=== PATIENT | female | born 1940 | race Caucasian/White ===

== ENCOUNTER 2017-09-24 04:18 | Emergency (ER) | payer MEDICARE, OTHER ==
[2017-09-24] MEDS ORDERED: Zofran 4 MG/2 ML VIAL IV ONE (04:35)
[2017-09-24] MEDS ORDERED: Sodium Chloride 0.9% 1000 ML 1,000 ML IV STA (04:35)
--- NOTE | 2017-09-24 04:35 | ERPHSYRPT ---
- History of Present Illness Time Seen by Provider: 09/24/17 04:30 Source: patient, family Exam Limitations: no limitations Patient Subjective Stated Complaint: Nausea, diarrhea every hour since 2100. Has attempted to vomit but not getting anything up. Triage Nursing Assessment: Pt alert, oriented, answers all questions appropriately. Skin pink, warm, dry. Resps non-labored. Pt ambulatory from wheelchair to bed, steady gait noted. Physician History: The patient is a 77-year-old female with her daughter complaining of diarrhea for the last 7 hours. She will also feel nauseated but has not vomited. She will have a "twinge" of abdominal pain just before an episode of loose stool hits her. She is not lightheaded. She denies fever or chills. Her past medical history is significant for hypertension, parathyroid condition, high cholesterol, A. fib. Timing/Duration: yesterday, hour(s) (7) Severity: moderate Modifying Factors: Improves With: nothing Associated Symptoms: nausea, other (diarrhea), No vomiting Allergies/Adverse Reactions: No Known Drug Allergies Allergy (Unverified 09/24/17 04:22) Home Medications: Allopurinol 100 mg [Zyloprim 100 mg] 100 mg PO DAILY 09/24/17 [History] Apixaban [Eliquis] 5 mg PO DAILY 09/24/17 [History] Bimatoprost [Lumigan] drops HS 09/24/17 [History] Brimonidine Tartrate/Timolol [Combigan 0.2%-0.5% Eye Drops] 5 ml OP DAILY [History] Cholecalciferol (Vitamin D3) [Vitamin D3] 5,000 unit PO DAILY 09/24/17 [History] Ferrous Sulfate 325 mg [Feosol 325 mg] 325 mg PO DAILY 09/24/17 [History] Hydralazine HCl 50 mg PO DAILY 09/24/17 [History] Metoprolol Succinate [Toprol Xl] 100 mg PO DAILY 09/24/17 [History] Potassium Chloride [Klor-Con 10] 10 meq PO DAILY 09/24/17 [History] Ramipril [Altace] 10 mg PO DAILY 09/24/17 [History] Simvastatin [Zocor] 0 mg PO DAILY 09/24/17 [History] Triamterene/Hydrochlorothiazid [Triamterene-Hctz 75-50 mg Tab] 1 each PO DAILY 09/24/17 [History] Immunizations Up to Date: Yes - Review of Systems Constitutional: No Fever, No Chills Eyes: No Symptoms Ears, Nose, & Throat: No Symptoms Respiratory: No Cough, No Dyspnea Cardiac: No Chest Pain, No Edema, No Syncope Abdominal/Gastrointestinal: Nausea, Diarrhea Genitourinary Symptoms: No Dysuria Musculoskeletal: No Back Pain, No Neck Pain Skin: No Rash Neurological: No Dizziness, No Focal Weakness, No Sensory Changes Psychological: No Symptoms Endocrine: No Symptoms Hematologic/Lymphatic: No Symptoms Immunological/Allergic: No Symptoms All Other Systems: Reviewed and Negative - Social History Smoking Status: Never smoker Exposure to second hand smoke: No Patient Lives Alone: No - Female History Hx Now: No - Nursing Vital Signs Nursing Vital Signs: Initial Vital Signs Temperature 97.8 F 09/24/17 04:29 Pulse Rate 119 H 09/24/17 04:29 Respiratory Rate 20 09/24/17 04:29 Blood Pressure 164/108 09/24/17 04:29 O2 Sat by Pulse Oximetry 94 L 09/24/17 04:29 Pain Scale Pain Intensity 0 - Physical Exam General Appearance: no apparent distress, alert Eye Exam: PERRL/EOMI, eyes nml inspection Ears, Nose, Throat Exam: normal ENT inspection, TMs normal, pharynx normal, moist mucous membranes Neck Exam: normal inspection, non-tender, supple, full range of motion Respiratory Exam: normal breath sounds, lungs clear, No respiratory distress Cardiovascular Exam: normal heart sounds, normal peripheral pulses, irregular Gastrointestinal/Abdomen Exam: soft, normal bowel sounds, No tenderness, No mass Pelvic Exam: not done Rectal Exam: not done Back Exam: normal inspection, normal range of motion, No CVA tenderness, No vertebral tenderness Extremity Exam: normal inspection, normal range of motion, pelvis stable Neurologic Exam: alert, oriented x 3, cooperative, normal mood/affect, nml cerebellar function, nml station & gait, sensation nml, No motor deficits Skin Exam: normal color, warm, dry, No rash Lymphatic Exam: No adenopathy SpO2 Interpretation: normal Ordered Tests: Active Orders 24 hr Category Date Time Status IV Insertion STAT Care 09/24/17 04:35 Active BMP Stat Lab 09/24/17 04:45 Completed CBC W DIFF Stat Lab 09/24/17 04:45 Completed Lactic Acid Stat Lab 09/24/17 04:35 Results Manual Differential NC Stat Lab 09/24/17 04:45 Completed Medication Summary Discontinued Medications Generic Name Dose Route Start Last Admin Trade Name Mattie PRN Reason Stop Dose Admin Sodium Chloride 1,000 mls @ 999 mls/hr 09/24/17 04:35 09/24/17 04:50 Sodium Chloride 0.9% 1000 Ml IV 09/24/17 05:35 999 mls/hr .Q1H1M STA Administration Sodium Chloride Confirm 09/24/17 04:46 Sodium Chloride 0.9% 1000 Ml Administered 09/24/17 04:47 Dose 1,000 mls @ ud .ROUTE .STK-MED ONE Ondansetron HCl 4 mg 09/24/17 04:35 09/24/17 04:51 Zofran 4 Mg/2 Ml Vial IV 09/24/17 04:36 4 mg STAT ONE Administration Ondansetron HCl Confirm 09/24/17 04:46 Zofran 4 Mg/2 Ml Vial Administered 09/24/17 04:47 Dose 4 mg .ROUTE .STK-MED ONE Lab/Rad Data: Laboratory Result Diagrams 09/24/17 04:45 09/24/17 04:45 Laboratory Results 09/24/17 09/24/17 09/24/17 Range/Units 04:45 04:45 04:35 WBC 12.5 H (4.0-10.5) K/mm3 RBC 4.53 (4.1-5.4) M/mm3 Hgb 13.7 (12.0-16.0) gm/dl Hct 41.7 (35-47) % MCV 92.1 (78-100) fl MCH 30.2 (26-32) pg MCHC 32.9 (32-36) g/dl RDW 13.6 (11.5-14.0) % Plt Count 191 (150-450) K/mm3 MPV 9.3 (6-9.5) fl Segmented Neutrophils 92 H (36.0-66.0) % Band Neutrophils 2 (0.0-2.0) % Lymphocytes (Manual) 3 L (24-44) % Monocytes (Manual) 3 (0.0-12.0) % Differential Comment NORMAL Platelet Estimate NORMAL (NORMAL) Sodium 144 (136-145) mEq/L Potassium 3.5 (3.5-5.1) mEq/L Chloride 106 (98-107) mEq/L Carbon Dioxide 27.4 (21-32) mEq/L Anion Gap 14.3 (5-15) MEQ/L BUN 22 H (9-20) mg/dL Creatinine 1.12 (0.55-1.30) mg/dl Estimated GFR 50 ML/MIN Glucose 151 H (70-110) MG/DL Lactic Acid 2.1 H (0.4-2.0) Calcium 9.8 (8.5-10.1) mg/dL - Progress Progress: improved Counseled pt/family regarding: lab results, diagnosis, need for follow-up - Departure Time of Disposition: 06:07 Departure Disposition: Home Clinical Impression: Diarrhea Condition: Stable Critical Care Time: No Referrals: TOMY VANCE [Primary Care Provider] - Additional Instructions: You had some episodes of diarrhea. You were given Zofran 4 mg and fluids by IV in the ER. Take Zofran 4 mg ODT every 6 hours as needed for nausea. Stay well hydrated. Follow-up in one to 2 days. Prescriptions: Ondansetron ODT 4 MG [Zofran Odt 4 mg] 1 tab PO Q6H PRN PRN #10 tab.rapdis PRN Reason: Nausea/Vomiting
[2017-09-24] MEDS ORDERED: Zofran 4 MG/2 ML VIAL ONE (04:46)
[2017-09-24] MEDS ORDERED: Sodium Chloride 0.9% 1000 ML 1,000 ML ONE (04:46)
[2017-09-24 04:53] LABS: Lactic Acid 2.1 (0.4-2.0)
[2017-09-24 04:55] LABS: Mean Cell Volume 92.1 fl (78-100); Mean Corpuscular Hemoglobin 30.2 pg (26-32); Mean Platelet Volume 9.3 fl (6-9.5); Platelet Count 191 K/mm3 (150-450); Red Blood Count 4.53 M/mm3 (4.1-5.4); Red Cell Distribution Width 13.6 % (11.5-14.0); White Blood Count 12.5 K/mm3 (4.0-10.5)
[2017-09-24 05:19] LABS: ANION GAP 14.3 MEQ/L (5-15); Carbon Dioxide 27.4 mEq/L (21-32); Potassium 3.5 mEq/L (3.5-5.1)
[2017-09-24 05:37] LABS: BAND 2 % (0.0-2.0); Platelet Estimate NORMAL (NORMAL); Total Cells Counted 100
[2017-09-24 05:56] VITALS: BP 160/88; PULSE 111; O2SAT 98
== END 2017-09-24 06:28 | disposition home or self-care (01) ==
LOC: ED 04:18
DX: R19.7 Diarrhea, unspecified (principal); R11.0 Nausea; Z79.899 Other long term (current) drug therapy; I10 Essential (primary) hypertension; E78.00 Pure hypercholesterolemia, unspecified
CPT/HCPCS: 36000; 36415; 80048; 83605; 85025; 96360; 96374; 99284; J2405

== ENCOUNTER 2018-05-20 21:22 | Emergency (ER) | payer MEDICARE, OTHER ==
--- NOTE | 2018-05-20 22:01 | ERPHSYRPT ---
- History of Present Illness Time Seen by Provider: 05/20/18 21:55 Source: patient, family Exam Limitations: no limitations Physician History: 78-year-old white female whose daughter states she's been having chronic pain in her knees arrives with complaint of pain in the right knee since this evening patient states that she went to sit and felt something pop in her knee she is having pain in the right posterior knee daughter states she is having a hard time walking because of the pain. she does state that she had lost the cap from one of her teeth and was going to place the a tooth in a baggie when she went to sit down and experienced the pain. Past medical history includes high blood pressure, parathyroid disease, hyperlipidemia, atrial fibrillation. Past surgical history includes , heart catheter which was okay, cataracts Patient is on xaralto Social history patient denies tobacco alcohol or illicit drug use. Method of Injury: other (sitting down and twisted right knee) Occurred: this evening (Around 8:00 this evening) Quality: constant, aching Severity of Pain-Max: moderate Severity of Pain-Current: mild Lower Extremities Pain: knee: right Modifying Factors: Improves With: movement Associated Symptoms: other (pain with walking) Allergies/Adverse Reactions: No Known Drug Allergies Allergy (Verified 05/20/18 21:59) Home Medications: Allopurinol 100 mg [Zyloprim 100 mg] 100 mg PO DAILY 09/24/17 [History] Apixaban [Eliquis] 5 mg PO DAILY 09/24/17 [History] Bimatoprost [Lumigan] 1 drops HS 09/24/17 [History] Brimonidine Tartrate/Timolol [Combigan 0.2%-0.5% Eye Drops] 5 ml OP DAILY [History] Ferrous Sulfate 325 mg [Feosol 325 mg] 325 mg PO DAILY 09/24/17 [History] Hydralazine HCl 100 mg PO DAILY 09/24/17 [History] Metoprolol Succinate [Toprol Xl] 100 mg PO DAILY 09/24/17 [History] Potassium Chloride [Klor-Con 10] 10 meq PO DAILY 09/24/17 [History] cloNIDine HCl [Clonidine HCl] 0.1 mg PO BID 05/20/18 [History] - Review of Systems Constitutional: No Fever, No Chills Eyes: No Symptoms Ears, Nose, & Throat: Other (patient's Came off of her left anterior incisor this evening) Respiratory: No Cough, No Dyspnea Cardiac: No Chest Pain, No Edema, No Syncope Abdominal/Gastrointestinal: No Abdominal Pain, No Nausea, No Vomiting, No Diarrhea Genitourinary Symptoms: No Dysuria Musculoskeletal: Other (left knee pain) Skin: No Rash Neurological: No Dizziness, No Focal Weakness, No Sensory Changes Psychological: No Symptoms Endocrine: No Symptoms All Other Systems: Reviewed and Negative - Past Medical History Pertinent Past Medical History: Yes ENT History: Glaucoma Cardiac History: High Cholesterol, Hypertension Endocrine Medical History: Other - Past Surgical History Past Surgical History: Yes Female Surgical History: Section Other Surgical History: 2 c-sections, parathyroid biopsy - Social History Smoking Status: Never smoker Exposure to second hand smoke: No Drug Use: none Patient Lives Alone: No - Nursing Vital Signs Nursing Vital Signs: Initial Vital Signs Temperature 98.1 F 05/20/18 21:48 Pulse Rate 66 05/20/18 21:48 Respiratory Rate 18 05/20/18 21:48 O2 Sat by Pulse Oximetry 97 05/20/18 21:48 Pain Scale Pain Intensity 2 - Physical Exam General Appearance: mild distress Eyes, Ears, Nose, Throat Exam: moist mucous membranes Neck Exam: non-tender, supple Cardiovascular/Respiratory Exam: chest non-tender, normal breath sounds, regular rate/rhythm, no respiratory distress Gastrointestinal/Abdominal Exam: non-tender, guarding Back Exam: normal inspection, No vertebral tenderness Hips Exam: bilateral: non-tender, normal inspection, normal range of motion, no evidence of injury Legs Exam: left leg: normal range of motion, bilateral leg: non-tender, normal inspection, no evidence of injury Knees Exam: right knee: other (patient's right knee tender with palpation posteriorly, and anteriorly inferior to patella, decreased range of motion right knee secondary to pain), left knee: non-tender, normal inspection, normal range of motion, no evidence of injury Ankle Exam: bilateral ankle: non-tender, normal inspection, normal range of motion, no evidence of injury Foot Exam: right foot: deformity (second and thrid toes overlap chronically), bilateral foot: non-tender, normal inspection, normal range of motion, no evidence of injury Neuro/Tendon Exam: normal sensation, normal motor functions Mental Status Exam: alert, oriented x 3, cooperative Skin Exam: normal color, warm, dry SpO2 Interpretation: normal - Course Nursing assessment & vital signs reviewed: Yes - Radiology Exams Right Knee X-ray Interpretation: Interpreted by me, Other (severe degenerative arthritis, no fractures or subluxation) Ordered Tests: Active Orders 24 hr Category Date Time Status Immobilizer STAT Care 05/20/18 23:15 Active KNEE (3 VIEWS) Stat Exams 05/20/18 21:54 Taken Medication Summary Discontinued Medications Generic Name Dose Route Start Last Admin Trade Name Mattie PRN Reason Stop Dose Admin Hydrocodone Bitart/Acetaminophen 1 tab 05/20/18 23:15 05/20/18 23:26 Meridian 5/325 Mg PO 05/20/18 23:16 1 tab STAT ONE Administration Hydrocodone Bitart/Acetaminophen Confirm 05/20/18 23:22 Meridian 5/325 Mg Administered 05/20/18 23:23 Dose 1 tab .ROUTE .STK-MED ONE Hydrocodone Bitart/Acetaminophen 1 tab 05/20/18 23:25 05/20/18 23:38 Meridian 5/325 Mg PO 05/20/18 23:26 1 tab SENT HOME W/ PATIENT ONE Administration Hydrocodone Bitart/Acetaminophen Confirm 05/20/18 23:35 Meridian 5/325 Mg Administered 05/20/18 23:36 Dose 1 tab .ROUTE .STK-MED ONE Amoxicillin 500 mg 05/20/18 23:26 05/20/18 23:39 Amoxil 500 Mg PO 05/20/18 23:27 500 mg STAT ONE Administration Amoxicillin Confirm 05/20/18 23:36 Amoxil 500 Mg Administered 05/20/18 23:37 Dose 500 mg .ROUTE .STK-MED ONE Clonidine 0.1 mg 05/20/18 23:39 05/20/18 23:47 Catapres 0.1 Mg PO 05/20/18 23:40 0.1 mg STAT ONE Administration Clonidine Confirm 05/20/18 23:40 Catapres 0.1 Mg Administered 05/20/18 23:41 Dose 0.1 mg .ROUTE .STK-MED ONE - Progress Progress: improved Progress Note: 05/20/18 23:16 This is a 78-year-old white female with history of parathyroid problems hyperlipidemia atrial fibrillation high blood pressure. She arrives with complaint of pain in her right knee symptoms since around 6:00 this evening. Patient states she was sitting down when she felt the pain. She also states that she has lost the one of the Her Upper Incisors Left Side. On examination patient has only a remnant of tooth left in her left upper incisor. She states she is not taking her blood pressure medication as directed she was noted to have a blood pressure of 205/98 on arrival. This is come down to 197/91 patient states that whenever she goes to the doctor or dentist's office that her blood pressure is elevated but at home her family states that the systolic blood pressure normally runs 147. Because the patient's blood pressure is coming down Will expect patient to take her blood pressure as directed by her family physician she will need follow-up with her family physician. I've x-rayed her right knee is shows severe degenerative arthritis I do not see acute fractures or subluxation. Will go ahead and place a right knee immobilizer. Will give patient Meridian one tablet orally plan home with Meridian one orally every 4-6 hours as needed for pain. Patient is to take her blood pressure medications as prescribed. I have advised the patient family to of takes a blood pressure wall patient is at rest several times at home write this down and follow-up with her family doctor. Will also write for amoxicillin 500 mg orally 3 times a day due to the fact that the patient has broken her left upper incisor. Patient will need to follow-up with her dentist. patient's family state t she has seen Dr. Finley for knee pain in the past. 05/21/18 00:57 patient given clonidine 0.1 mg in the emergency room secondary to increased blood pressure. - Departure Time of Disposition: 23:20 Departure Disposition: Home Clinical Impression: Right knee pain Qualifiers: Chronicity: acute Qualified Code(s): M25.561 - Pain in right knee Hypertension Qualifiers: Hypertension type: essential hypertension Qualified Code(s): I10 - Essential ( primary) hypertension Condition: Fair Critical Care Time: No Referrals: TOMY VANCE [Primary Care Provider] - Instructions: Knee Pain (DC) Additional Instructions: Return home. Meridian as prescribed. High blood pressure medications as prescribed by your family doctor. Walker weightbearing as tolerated right lower extremity. Your blood pressure is elevated in the emergency room. It is important that you take your blood pressure medications as prescribed by your family doctor. You've give a history of having high blood pressure in the Dr. office which is markedly improved at home. Take your blood pressure several times at rest during the day write this down. Follow-up with your family doctor call tomorrow for an appointment. Follow-up with your family doctor and/or Dr. Finley. Return for acute distress or for severe symptoms. follow-up with your dentist Prescriptions: Amoxicillin 500 mg PO TID #30 capsule Hydrocodone/Acetaminophen [Meridian 5-325 Tablet] 1 tab PO Q4-6HPRN PRN #10 tablet MDD 6 tablets PRN Reason: Pain
[2018-05-20 23:20] VITALS: O2SAT 97
[2018-05-20] MEDS ORDERED: NORCO 5/325 MG ONE ×2 (23:22→23:35)
[2018-05-20] MEDS: NORCO 5/325 MG PO ONE ×2 (23:26→23:38)
[2018-05-20] MEDS ORDERED: AMOXIL 500 MG ONE (23:36)
[2018-05-20] MEDS: AMOXIL 500 MG PO ONE (23:39)
[2018-05-20] MEDS ORDERED: Catapres 0.1 MG ONE (23:40)
[2018-05-20] MEDS: Catapres 0.1 MG PO ONE (23:47)
[2018-05-21 00:37] VITALS: BP 194/84; PULSE 57
--- NOTE | 2018-05-21 08:47 | XRAY ---
Indication: Pain. Comparison: None 3 views of the right knee demonstrates minimal vascular calcifications, osteopenia, and moderate/advanced tricompartmental degenerative changes greatest medial compartment. No other bony, articular, or soft tissue abnormalities.
== END 2018-05-21 00:53 | disposition home or self-care (01) ==
LOC: ED 21:22
DX: M25.561 Pain in right knee (principal); I10 Essential (primary) hypertension; Z79.01 Long term (current) use of anticoagulants; Z79.899 Other long term (current) drug therapy; X50.0XXA Overexertion from strenuous movement or load, initial encounter
CPT/HCPCS: 73562; 99284; L1830; A9270-GY

== ENCOUNTER 2019-11-03 10:15 | Day surgery (SDC) | payer MEDICARE, OTHER ==
--- NOTE | 2019-11-03 08:00 | HP ---
DATE OF SURGERY: 11/03/2019 HISTORY OF PRESENT ILLNESS: The patient is a 79 year-old with lesion left arm that was really bleeding, increasing in size, failed to heal. She has a lesion of undetermined age nonhealing of left arm. I feel the patient will benefit from incision and biopsy. PAST MEDICAL HISTORY: Hypoparathyroidism, hyperlipidemia, history of hypercalcemia, hypertension, atrial fibrillation, had some chronic renal disease. PAST SURGICAL HISTORY: Eye surgery. Tonsillectomy. section in the past. MEDICATIONS: Includes allopurinol, clonidine, Combivent eye drops, dorzolamide eye drops, doxazosin, Eliquis, hydralazine, Klor-Con, magnesium, metoprolol, Nystatin. ALLERGIES: NKDA. FAMILY HISTORY: Negative in regards to this problem. SOCIAL HISTORY: No smoking or alcohol abuse. REVIEW OF SYSTEMS: Fourteen systems reviewed per admission assessment. No chest pain or palpitations other systems negative or noncontributory as above and per preadmission questionnaire. PHYSICAL EXAMINATION: GENERAL: No acute distress. HEENT: Sclerae nonicteric. NECK: No JVD. CHEST: Equal excursion, nonlabored breathing. CVS: Regular rate and rhythm. ABDOMEN: Soft. No peritoneal signs. EXTREMITIES: No significant edema. She had lesion of indeterminate behavior left arm. NEURO: Alert, oriented, moving extremities symmetrically. No gross motor deficits noted. IMPRESSION: Left arm enlarging, nonhealing lesion of indeterminate behavior. I feel the patient needs wide excision. Risks and benefits explained in detail including but not limited to bleeding or infection, risk of involved margins possibly requiring wider excision, risk of wound dehiscence possibly requiring packing or possible skin graft. General risk of anesthesia, deep venous thrombosis, pulmonary embolism, pneumonia, general risk of aches and pains. She understands and agrees to the planned procedure, will proceed with lysis of left arm lesion of indeterminate behavior as an outpatient.
[~2019-11-03 10:15] MED LIST: DIPRIVAN 200 MG/20 ML IV ONE; Ketamine HCl 50 MG/ML ONE; Lactated Ringers 1,000 ML IV ONE; Lactated Ringers 1,000 ML IV SCH; Sensorcaine 0.25% 10 ML ONE
[2019-11-03] MEDS: Versed 2 MG/2 ML Injection IV ONE ×2 (10:53→11:05)
[2019-11-03] MEDS ORDERED: APRESOLINE 20 MG/ML INJ ONE (11:28)
[2019-11-03] MEDS ORDERED: XYLOCAINE 1% HCL 20 ML MDV ONE ×2 (11:32)
[2019-11-03] MEDS ORDERED: TORAdol 30 mg Injection ONE (11:43)
[2019-11-03] MEDS ORDERED: Decadron 4 MG INJ ONE (11:43)
[2019-11-03] MEDS ORDERED: Zofran 4 MG/2 ML VIAL ONE (11:43)
[2019-11-03 13:01] VITALS: BP 147/78; PULSE 82; O2SAT 93
--- NOTE | 2019-11-04 11:33 | OP ---
SURGERY DATE/TIME: 11/03/2019 1127 PREOPERATIVE DIAGNOSIS: Nonhealing lesion of indeterminate behavior left forearm. POSTOPERATIVE DIAGNOSIS: Nonhealing lesion of indeterminate behavior left forearm, final path pending. PROCEDURE: Excisional biopsy large left forearm lesion of indeterminate behavior (approximately 2.8 cm with margins) with intermediate closure with local advancement flaps. SURGEON: Dr. Francisco Ferro. ANESTHESIA: MAC. 1% lidocaine local. ESTIMATED BLOOD LOSS: Minimal. INDICATIONS: As noted above. Risks and benefits explained in detail and not limited to and consent obtained. Site had been marked and confirmed in the preoperative holding area. DESCRIPTION OF PROCEDURE AND FINDINGS: The patient is taken to the operating room. MAC anesthesia introduced, 1% lidocaine local was infiltrated in field pattern. After official time out and no disagreement with planned procedure, arm is prepped and draped in sterile fashion of this forearm lesion. At this point sharp dissection was carried out around the normal appearing skin as she had around this large lesion. It resulted in a specimen about 2.8 cm with margins and about a 6 cm long spindle-shaped excision pattern. Dissection carried down off the subcutaneous tissue beneath. She had a large amount of adipose tissue. A couple small veins were secured with 3-0 Vicryl and a little pin point cautery. As the specimen had kind of peeled away from the center portion, additional posterior margin directly behind this nonhealing lesion was accomplished placing a suture to kvng orientation directly posterior away from the part that was up against the patient's side away from the part that was against the original specimen. Sutures on the farthest portion of the specimen away from the original specimen. Good hemostasis noted. Flaps were undermined on either side given the large defect. These flaps were then advanced back to the midline with interrupted 3-0 Vicryl in the deep superficial subcu and closed with 3-0 Vicryl bringing the flaps back to midline. Skin closed with 4-0 Vicryl in running subcuticular fashion. Steri-Strips and sterile dressing applied. The patient tolerated the procedure well. There were no immediate complications. Findings were discussed with the family out in the waiting area.
== END 2019-11-03 13:20 | disposition home or self-care (01) ==
LOC: SDC 10:15
PROVIDERS: ATTEND Surgery
DX: C44.629 Squamous cell carcinoma of skin of left upper limb, including shoulder (principal)
CPT/HCPCS: 99100; J0360; J1100; J1885; J2250; J2405; J2704

== ENCOUNTER 2020-06-07 08:27 | Emergency (ER) | payer MEDICARE, OTHER ==
[2020-06-07] MEDS ORDERED: Adacel Vial IM ONE ×2 (08:58→09:40)
--- NOTE | 2020-06-07 09:10 | ERPHSYRPT ---
- History of Present Illness Time Seen by Provider: 06/07/20 08:44 Source: patient Exam Limitations: no limitations Patient Subjective Stated Complaint: fall out of bed Triage Nursing Assessment: pt to ED after fall out of bed this am at 0620. is on eliquis, did hit head, denies LOC. pt A&Ox4 at this time. to room in WC but ambulatory to bed with one assist with steady gate. pt lives home alone, family lives near by. noted mild bruising to L forehead, where pt states she hit head. also small abrasion to L eblow, covered with bandaid, bleeding controled. also noted approx 6x4 cm bruise/swelling to L upper arm. Physician History: 80 yo wf fell out of bed and hit head 2.5 hr before arrival by private vehicle. Pt denies LOC but is on Eliquis for Afib. She denies chest pain/dyspnea/fever/C-T-L spine pain/hip pain/LE pain/focal weakness but has mild L olecranon pain. Occurred: other (2.5hr) Reason for Fall: slipped (Fell getting out of bed) Injuries/Pain Location: head (L olecranon) Loss of Consciousness: no loss of consciousness Quality: other (Mild 1-2/10) Severity of Pain-Max: mild Severity of Pain-Current: mild Modifying Factors: Improves With: nothing Associated Symptoms (Fall): headache, No abdominal pain, No back pain, No confusion, No chest pain, No dizziness, No lightheadedness, No muscle spasms, No nausea, No neck pain, No ringing in ears, No seizures, No shortness of breath, No slurred speech, No trouble walking, No vomiting, No vision changes Allergies/Adverse Reactions: No Known Drug Allergies Allergy (Verified 06/07/20 08:58) Home Medications: Allopurinol 100 mg [Zyloprim 100 mg] 100 mg PO DAILY 09/24/17 [History] Apixaban [Eliquis] 5 mg PO BID 09/24/17 [History] Bimatoprost [Lumigan] 1 drops OP HS 09/24/17 [History] Brimonidine Tartrate/Timolol [Combigan 0.2%-0.5% Eye Drops] 1 drop OP BID 09/24/17 [History] Hydralazine HCl 50 mg PO TID PRN 09/24/17 [History] Metoprolol Succinate [Toprol Xl] 100 mg PO DAILY 09/24/17 [History] Potassium Chloride [Klor-Con 10] 10 meq PO DAILY 09/24/17 [History] cloNIDine HCL [Clonidine HCl] 2 tab PO BID 05/20/18 [History] Dorzolamide HCl/Pf [Dorzolamide 2% Eye Drop] 1 drop OP DAILY 10/16/19 [History] Doxazosin Mesylate 2 mg [Cardura 2 mg] 2 mg PO HS 10/16/19 [History] Magnesium Oxide 400 mg [Mag-Ox 400] 400 mg PO BID 10/16/19 [History] Metoprolol Succinate 50 mg [Toprol Xl 50 MG] 50 mg PO DAILY 10/16/19 [History] Amlodipine Besylate [Norvasc] 2.5 mg PO DAILY 11/03/19 [History] Hx Tetanus, Diphtheria Vaccination/Date Given: Yes Hx Influenza Vaccination/Date Given: Yes Hx Pneumococcal Vaccination/Date Given: Yes Immunizations Up to Date: Yes Travel Risk - International Travel Have you traveled outside of the country in past 3 weeks: No - Coronavirus Screening Are you exhibiting any of the following symptoms?: No Close contact with a COVID-19 positive Pt in past 14-21 Days: No - Review of Systems Constitutional: No Symptoms Eyes: No Symptoms Ears, Nose, & Throat: No Symptoms Respiratory: No Symptoms Cardiac: No Symptoms Abdominal/Gastrointestinal: No Symptoms Genitourinary Symptoms: No Symptoms Skin: No Symptoms Neurological: No Symptoms Psychological: No Symptoms Endocrine: No Symptoms Hematologic/Lymphatic: No Symptoms Immunological/Allergic: No Symptoms - Past Medical History Pertinent Past Medical History: Yes Neurological History: No Pertinent History ENT History: Glaucoma Cardiac History: Arrhythmia, High Cholesterol, Hypertension Respiratory History: No Pertinent History Endocrine Medical History: Other Musculoskeletal History: Arthritis GI Medical History: No Pertinent History History: No Pertinent History, Other Psycho-Social History: Anxiety Female Reproductive Disorders: No Pertinent History Other Medical History: Parathyroid nodules. 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 Situational anxiety - Past Surgical History Past Surgical History: Yes Neuro Surgical History: No Pertinent History Cardiac: No Pertinent History, Cardiac Catheterization Respiratory: No Pertinent History Gastrointestinal: No Pertinent History Genitourinary: No Pertinent History Musculoskeletal: No Pertinent History Female Surgical History: Section Other Surgical History: 2 c-sections, parathyroid biopsy - Social History Smoking Status: Never smoker Exposure to second hand smoke: No Drug Use: none Patient Lives Alone: No Significant Family History: no pertinent family hx - Female History Hx Now: No - Nursing Vital Signs Nursing Vital Signs: Initial Vital Signs Temperature 98.2 F 06/07/20 08:36 Pulse Rate 77 06/07/20 08:36 Respiratory Rate 18 06/07/20 08:36 Blood Pressure 199/91 06/07/20 08:36 O2 Sat by Pulse Oximetry 95 06/07/20 08:36 Pain Scale Pain Intensity 1 - Mariella Coma Score Best Eye Response (Mariella): (4) open spontaneously Best Verbal Response ([place]): (5) oriented Best Motor Response (Mariella): (6) obeys commands [place] Total: 15 - Physical Exam General Appearance: no apparent distress Head Injury: tenderness (Mild L parietal TTP) Eye Exam: PERRL/EOMI, eyes nml inspection ENT Exam: airway nml, nml ext.inspection, other (Hearing aids in place) Neck Exam: supple (C-spine nttp) Respiratory/Chest Exam: normal breath sounds, No chest tenderness, No respiratory distress Cardiovascular Exam: regular rate/rhythm, murmur (1-2/6 BOONE) Gastrointestinal Exam: soft, normal bowel sounds, No tenderness Back Exam: normal inspection (No C/T/L-spine ttp) Extremity Exam: normal inspection, pelvis stable (Hips nttp) Neurologic Exam: alert, oriented x 3, cooperative, road builder II-XII nml as tested, normal mood/affect, nml cerebellar function, sensation nml, No motor deficits, No sensory deficit Skin Exam: normal color, warm, dry SpO2 Interpretation: normal SpO2: 95 O2 Delivery: Room Air - Course Nursing assessment & vital signs reviewed: Yes - Radiology Exams Elbow X-ray Interpretation: Discussed w/ radiologist (L elbow neg) - CT Exams Head CT Interpretation: Discussed w/radiologist (L temporal scalp hematoma/no intra- cranial process) Ordered Tests: Active Orders 24 hr Category Date Time Status ELBOW (MINIMUM 3 VIEWS) Stat Exams 06/07/20 09:35 Completed HEAD WITHOUT CONTRAST [CT] Stat Exams 06/07/20 08:44 Completed Medication Summary Discontinued Medications Generic Name Dose Route Start Last Admin Trade Name Mattie PRN Reason Stop Dose Admin Diphtheria/Tetanus/Acell Pertussis 0.5 ml 06/07/20 08:58 06/07/20 09:40 Adacel Vial IM 06/07/20 08:59 0.5 ml .ONCE ONE Administration Diphtheria/Tetanus/Acell Pertussis Confirm 06/07/20 09:40 Adacel Vial Administered 06/07/20 09:41 Dose 0.5 ml IM .STK-MED ONE - Progress Progress: unchanged Progress Note: 06/07/20 09:50 Pt refuses pain meds. Discharged in stable condition in care of daughter. Counseled pt/family regarding: need for follow-up, rad results - Departure Departure Disposition: Home Clinical Impression: Contusion of scalp, Elbow contusion Condition: Stable Critical Care Time: No Referrals: TOMY VANCE [NON-STAFF PHY W/O PRIVILEGES] - Instructions: Closed Head Injury (DC), Contusion (DC), Preventing Falls Additional Instructions: Ice to contused areas for 12-24 hours Motrin/tylenol for pain Return to ER for increasing pain/Focal weakness/Mental status changes
--- NOTE | 2020-06-07 09:45 | XRAY ---
Exam: 3 view left elbow series from 06/07/2020. Comparison: None. Indication: Fell out of bed this morning, laceration of posterior left elbow. Findings: AP, oblique, and 2 lateral radiographs are submitted for evaluation. I see no acute fracture, dislocation, or joint effusion. The left elbow joint space appears unremarkable. There is a defect in the skin contour posterior to the left elbow which may relate to the laceration at this site. Correlate clinically. I see no radiopaque soft tissue foreign body. Impression: 1. No acute left elbow fracture or dislocation is seen. Nor do I detect a left elbow joint effusion/hemarthrosis.
--- NOTE | 2020-06-07 09:46 | XRAY ---
Exam: CT of the head without IV contrast from 06/07/2020. CTDI: 53.92 mGy Comparison: None. Indication: Patient fell, trauma to left side of head. Technique: Non-IV contrast axial images were obtained through brain. Reconstructed coronal and sagittal images were created and reviewed. Findings: The ventricles are of normal size. No focal mass effect or midline shift is seen. No acute intracranial parenchymal bleed, subarachnoid hemorrhage, or subdural or epidural hematoma is seen. The calvarium of the skull appears intact. I do note a scalp hematoma overlying the anterior and mid aspect of the left temporal region including the temporal-parietal junction. Mild bilateral periventricular and subcortical white matter changes are seen, likely due to mild chronic microvascular disease. A discrete cortical infarct is not seen. The cortical sulci and basilar cisterns are within normal limits for age. The visualized paranasal sinuses are clear, except for some minimal mucoperiosteal thickening at the upper medial margin of the left maxillary sinus. No air-fluid levels are seen. The orbits appear unremarkable. The mastoid air cells appear unremarkable without evidence of effusion. The middle ear cavities appear grossly unremarkable. Mild vascular calcification is seen within the distal vertebral arteries and carotid siphons. Impression: 1. No acute intracranial bleed or other acute intracranial process seen. 2. An anterior left temporal scalp hematoma is seen. No underlying fracture of the calvarium is seen. 3. Mild bilateral periventricular and subcortical white matter changes are seen, likely reflecting chronic microvascular disease. A distinct cortical infarct is not seen. 4. Minimal mucoperiosteal thickening within the upper medial margin of the left maxillary sinus. No air-fluid levels are visualized.
[2020-06-07 10:11] VITALS: BP 164/88; PULSE 75
[2020-06-07 16:11] VITALS: O2SAT 95
== END 2020-06-07 10:24 | disposition home or self-care (01) ==
LOC: ED 08:27
DX: S00.03XA Contusion of scalp, initial encounter (principal); S50.02XA Contusion of left elbow, initial encounter; Z79.01 Long term (current) use of anticoagulants; S50.312A Abrasion of left elbow, initial encounter; W06.XXXA Fall from bed, initial encounter; Z79.899 Other long term (current) drug therapy; I10 Essential (primary) hypertension; E78.00 Pure hypercholesterolemia, unspecified; Z86.79 Personal history of other diseases of the circulatory system
CPT/HCPCS: 70450; 73080; 90471; 90715; 99284

== ENCOUNTER 2021-03-09 08:34 | Day surgery (SDC) | payer MEDICARE ==
[2021-03-09] MEDS ORDERED: Lactated Ringers 1,000 ML IV SCH (09:00)
[2021-03-09] MEDS ORDERED: XYLOCAINE 1% HCL 20 ML MDV ONE (09:31)
[2021-03-09] MEDS ORDERED: Lactated Ringers 1,000 ML IV ONE (09:32)
[2021-03-09 10:03] LABS: ANION GAP 9.6 MEQ/L (5-15); BLOOD UREA NITROGEN 16 mg/dL (7-17); CHLORIDE 97 mmol/L (98-107); Calcium 9.8 mg/dL (8.4-10.2); Carbon Dioxide 33 mmol/L (22-30); Creatinine 1 0.82 mg/dL (0.52-1.04); EST GLOMERULAR FILTRATION RATE > 60.0 ML/MIN; Glucose 110 mg/dL (74-106); Potassium 3.4 mmol/L (3.5-5.1); SODIUM 136 mmol/L (137-145)
[2021-03-09] MEDS ORDERED: DIPRIVAN 200 MG/20 ML IV ONE ×2 (11:05→11:25)
[2021-03-09] MEDS ORDERED: SUBLIMAZE 100 MCG/2 ML ONE (11:13)
[2021-03-09 12:23] VITALS: PULSE 74
[2021-03-09 12:57] VITALS: O2SAT 97
[2021-03-09 13:00] VITALS: BP 151/87
--- NOTE | 2021-03-09 13:31 | OP ---
SURGERY DATE/TIME: 03/09/2021 1107 PREOPERATIVE DIAGNOSES: 1) Anemia. 2) Left arm skin lesion. POSTOPERATIVE DIAGNOSES: 1) Anemia. 2) Left arm skin lesion. 3) Gastritis. 4) Hiatal hernia. 5) Internal and external hemorrhoids, moderate. 6) Diverticulosis. 7) esophageal stricture, benign appearing PROCEDURE: EGD with dilatation of esophageal stricture and biopsies of the antrum and esophagus. SURGEON: Akhil Hoang M.D. ANESTHESIA: IV anesthesia and local. CONDITION: Patient condition stable. COMPLICATIONS: None. SPECIMENS: 1) Left arm skin lesion biopsy. 2) Stomach biopsy. 3) Antrum biopsy for Helicobacter pylori. HISTORY: The patient is a 80 year-old female with anemia and left arm skin lesion. After being evaluated in the office most of the skin lesion has flaked off. It seemed like actinic keratosis which is 2 cm hypopigmented area but does want to proceed with a biopsy instead of incision. She has been holding her blood thinner. Risks of bleeding, perforation discussed and elected to proceed. FINDINGS: 1) There is a moderate sized hiatal hernia with some gastritis in it which could potentially explain the anemia. 2) She also has significant internal hemorrhoids that are nonbleeding. 3) Extensive diverticulosis. 4) Left arm skin biopsy performed. 5) benign appearing intrinsic esophageal stenosis dilated DESCRIPTION OF PROCEDURE: The patient was brought to the OR. She was routinely prepped and toweled out for the arm lesion. IV anesthesia induced. Lidocaine injected. A less than 1 cm elliptical incision made including the lesion and some normal skin and this is sent in formalin as a "Left arm skin lesion". Re-approximated with 4-0 chromic suture. Good hemostasis. Sterile dressing applied. The patient is then positioned for EGD. The scope is inserted. The cords are normal. Advanced to the third portion of the duodenum. Duodenum is normal. Antrum is normal. On retroflexion there is a moderate sized hiatal hernia with some gastritis. No active bleeding. Linear gastritis in the folds of the hiatal hernia. Senior [employer] Developer biopsies taken and sent as "Stomach biopsy" and an additional biopsy of the antrum for Helicobacter pylori. There is benign appearing intrinsic esophageal stenosis at the distal esophagus. 18-20mm balloon dilation performed to 20mm. minimal mucosal disruption. The scope is then withdrawn. The esophagus is normal otherwise. On external exam there are external hemorrhoids. The scope is inserted and advanced to the cecum confirmed by appendiceal orifice and ileocecal valve. There is good preparation. The entire colon is adequately examined. There is extensive diverticulosis limited to the sigmoid colon. There are significant internal hemorrhoids that are not actively prolapsing during the exam. RECOMMENDATIONS: I recommend starting Protonix 40 mg p.o. daily for the gastritis. I recommend following up in the office for pathology results. Her next colonoscopy would be in ten years for screening purposes if she is still in good health.
== END 2021-03-09 13:03 | disposition home or self-care (01) ==
LOC: SDC 08:34
PROVIDERS: ATTEND Surgery
DX: D64.9 Anemia, unspecified (principal); L57.0 Actinic keratosis; K29.70 Gastritis, unspecified, without bleeding; K44.9 Diaphragmatic hernia without obstruction or gangrene; K64.4 Residual hemorrhoidal skin tags; K64.8 Other hemorrhoids; K57.30 Diverticulosis of large intestine without perforation or abscess without bleeding; K22.2 Esophageal obstruction
CPT/HCPCS: 36415; 80048; 88305; 88342; 99100; J2704; J3010

== ENCOUNTER 2024-01-16 17:17 | Observation (INO) | payer MEDICARE ==
--- NOTE | 2024-01-16 17:37 | ERPHSYRPT ---
- History of Present Illness Source: patient, family Timing/Duration: today Severity: mild (To moderate symptomatically) Associated Symptoms: shortness of breath (Mild, intermittent with exertion), weakness, No chest pain Hx Tetanus, Diphtheria Vaccination/Date Given: Yes Hx Influenza Vaccination/Date Given: Yes Hx Pneumococcal Vaccination/Date Given: Yes <DAIN ESCOBEDO - Last Filed: 01/16/24 19:16> <VASQUEZGEE - Last Filed: 01/16/24 20:20> - History of Present Illness Time Seen by Provider: 01/16/24 17:36 Physician History: This is an 83-year-old obese white female patient who was sent to our facility secondary to hemoglobin of 5.3 that was drawn at approximately 1353 today. Patient's corporate statistical financial analyst is Dr. Bustillo and technical support assistant Dr. Ferrara. Patient has a history of atrial fibrillation on Eliquis patient initially stated that she had no complaints. However in talking to her patient did finally admit that maybe in the last several days she has been weaker than usual and with exertion and has had some increased, intermittent shortness of breath. Patient denies chest pain. She has no abdominal pain. She has never had blood transfusion in the past. Patient's white count is normal as is her platelet count. Her renal function is also relatively normal. Patient has not been vomiting blood, urinating blood or having bloody bowel movements. She has not not had any dark tarry stools. Patient quit taking iron because it caused constipation. It has been a while since the patient has had an upper or lower endoscopy. (DAIN ESCOBEDO) Allergies/Adverse Reactions: No Known Drug Allergies Allergy (Verified 01/16/24 17:36) Home Medications: Allopurinol 100 mg [Zyloprim 100 mg] 100 mg PO DAILY 09/24/17 [History] Bimatoprost [Lumigan] 1 drops OP HS 09/24/17 [History] Brimonidine Tartrate/Timolol [Combigan 0.2%-0.5% Eye Drops] 1 drop OP BID 09/24/17 [History] Hydralazine HCl 50 mg PO DAILY 09/24/17 [History] Metoprolol Succinate [Toprol Xl] 150 mg PO DAILY 09/24/17 [History] Potassium Chloride [Klor-Con 10] 10 meq PO DAILY 09/24/17 [History] Dorzolamide HCl/Pf [Dorzolamide 2% Eye Drop] 1 drop OP DAILY 10/16/19 [History] Doxazosin Mesylate 2 mg [Cardura 2 mg] 2 mg PO HS 10/16/19 [History] Magnesium Oxide [Magnesium] 400 mg PO DAILY 07/26/21 [History] cloNIDine [Catapres-Tts 1] 0.1 mg TD WEEKLY 07/26/21 [History] Losartan Potassium [Cozaar] 25 mg PO BID 03/31/22 [History] Travel Risk - International Travel Have you traveled outside of the country in past 3 weeks: No - Emerging Infectious Disease Are you exhibiting symptoms associated with any current EIDs: No - Vaccine Status Hx Covid Vaccintation/Booster/Date Given: No <DAIN ESCOBEDO - Last Filed: 01/16/24 19:16> - Review of Systems Constitutional: Weakness Eyes: No Symptoms Ears, Nose, & Throat: No Symptoms Respiratory: Dyspnea on Exertion (EDWARDS) (Mild intermittent) Cardiac: No Symptoms Abdominal/Gastrointestinal: No Symptoms, No Hematemesis, No Hematochezia Genitourinary Symptoms: No Symptoms, No Hematuria Musculoskeletal: No Symptoms Skin: No Symptoms Neurological: No Symptoms, No Dizziness Psychological: No Symptoms Endocrine: No Symptoms Hematologic/Lymphatic: No Symptoms <DAIN ESCOBEDO - Last Filed: 01/16/24 19:16> - Past Medical History Pertinent Past Medical History: Yes Neurological History: No Pertinent History ENT History: Glaucoma Cardiac History: Arrhythmia, High Cholesterol, Hypertension Respiratory History: No Pertinent History Endocrine Medical History: Other Musculoskeletal History: Arthritis GI Medical History: No Pertinent History History: Other Psycho-Social History: Anxiety Female Reproductive Disorders: No Pertinent History Other Medical History: Parathyroid nodules. 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 Situational anxiety - Past Surgical History Past Surgical History: Yes Neuro Surgical History: No Pertinent History Cardiac: Cardiac Catheterization Respiratory: No Pertinent History Gastrointestinal: No Pertinent History Genitourinary: No Pertinent History Musculoskeletal: No Pertinent History Female Surgical History: Section Other Surgical History: 2 c-sections, parathyroid biopsy. Skin cancer removed from left arm Significant Family History: no pertinent family hx - Social History Smoking Status: Never smoker Exposure to second hand smoke: No Drug Use: none Patient Lives Alone: No <DAIN ESCOBEDO - Last Filed: 01/16/24 19:16> - Physical Exam General Appearance: no apparent distress, alert, obese Eye Exam: PERRL/EOMI, eyes nml inspection Ears, Nose, Throat Exam: normal ENT inspection, moist mucous membranes Neck Exam: normal inspection, non-tender, supple, full range of motion Respiratory Exam: normal breath sounds, lungs clear, airway intact, No chest tenderness, No respiratory distress Cardiovascular Exam: regular rate/rhythm, normal heart sounds, normal peripheral pulses Gastrointestinal/Abdomen Exam: soft, normal bowel sounds, No tenderness Pelvic Exam: not done Rectal Exam: not done Back Exam: normal inspection, normal range of motion, No CVA tenderness, No vertebral tenderness Extremity Exam: normal inspection, normal range of motion, pelvis stable Neurologic Exam: alert, oriented x 3, cooperative, social media sr strategy manager II-XII nml as tested, normal mood/affect, nml cerebellar function, nml station & gait, sensation nml Skin Exam: normal color, warm, dry Lymphatic Exam: No adenopathy SpO2 Interpretation: normal SpO2: 97 O2 Delivery: Room Air <DAIN ESCOBEDO - Last Filed: 01/16/24 19:16> - Nursing Vital Signs Nursing Vital Signs: Initial Vital Signs Temperature 98.6 F 01/16/24 17:35 Pulse Rate 99 H 01/16/24 17:35 Respiratory Rate 18 01/16/24 17:35 Blood Pressure 181/86 01/16/24 17:35 O2 Sat by Pulse Oximetry 97 01/16/24 17:35 Pain Scale Pain Intensity 0 - Course Nursing assessment & vital signs reviewed: Yes <GEE CAM - Last Filed: 01/16/24 20:20> Ordered Tests: Active Orders 24 hr Category Date Time Status Occult Blood-Fecal Screen (Diagnostic) [OB-FECAL SCREEN Lab 01/16/24 Ordered ] Stat Lab/Rad Data: Laboratory Results 01/16/24 Range/Units 19:37 ABO Group Pending Rh Factor Pending Antibody Screen Pending Crossmatch Pending - Progress Progress: unchanged Counseled pt/family regarding: lab results, diagnosis <DAIN ESCOBEDO - Last Filed: 01/16/24 19:16> <GEE CAM - Last Filed: 01/16/24 20:20> - Progress Progress Note: 01/16/24 19:20 This patient's medical issue is 1 of high complexity. Level complexity and workup performed is based on review of the patient's past medical history, review patient's medication list, review patient drug allergy list, history present illness and physical findings on examination. The workup includes reviewing the outpatient laboratory data results. Placement of intravenous line, type and cross the patient for 4 units of packed red blood cells. Obtain stool specimen for occult blood. Patient will need placement in observation for transfusion of packed red blood cells. I discussed this patient with Dr. Gee Cam who is taking over from me at shift change. He will contact the hospitalist for placement of this patient in observation. (DAIN ESCOBEDO) Patient endorsed to Dr. Maldonado at 8:[address] Moyer accepts admission. Plan of care discussed with patient. Patient agrees to admission to [facility] for further evaluation and treatment. Portions of this note were created with voice recognition technology. There may be grammatical, spelling, punctuation or sound alike errors 01/16/24 20:17 (GEE CAM) Medical Desision Making - Independent Historian Additional History obtained from: Family - Diagnostic Testing Diagnostic test were ordered, analyzed, and reviewed by me: Yes - Risk of complications The pt has a high risk of morbidity or mortality based on: Decision regarding hospitilization or escalation of hosp level of care <DAIN ESCOBEDO - Last Filed: 01/16/24 19:16> - Departure Departure Disposition: Observation Critical Care Time: Yes Critical Care Time(excluding separately billable procedures): Critical 30-74 mins (30 minutes) <DAIN ESCOBEDO - Last Filed: 01/16/24 19:16> <GEE CAM - Last Filed: 01/16/24 20:20> - Departure Clinical Impression: Symptomatic anemia, Blood transfusion during current hospitalisation Condition: Stable Referrals: THOMAS FROST DO [Primary Care Provider] - Follow up/PCP as directed
[2024-01-16] MEDS ORDERED: TYLENOL 325 MG PO PRN (20:17)
--- NOTE | 2024-01-16 20:30 | PCM.HP ---
History of Present Illness - Chief Complaint Chief Complaint: symptomatic anemia Date: 01/16/24 History of Present Illness: 83-year-old woman with a history of A-fib on Eliquis, iron-deficiency anemia, and hypertension, who presents from outside clinic with symptomatic anemia. Patient was found to have iron-deficiency anemia about 1 year ago. At that time, she underwent EGD and colonoscopy that showed no source of bleeding. At that point, she was placed on iron oral repletion, but she did not tolerate it due to constipation. She was changed to iron infusions, with improvement in her levels. This is all been supervised by her job captain, Dr. Bustillo. However, she has not seen him in 6 months, but anticipation of a new visit next week, had labs drawn including CBC and anemia labs. All of those labs, she had a hemoglobin of 5.3, and was told to come to the hospital. After arriving in thorough questioning by her daughter, patient admitted that she has been having some worsening dyspnea and weakness, particularly when trying to get out of the shower. She denies any history of hematochezia, melena, or hematemesis. - Review of Systems Constitutional: Weakness Eyes: No Symptoms Respiratory: Short Of Breath Abdominal/Gastrointestinal: No Hematemesis, No Hematochezia, No Melena Genitourinary Symptoms: No Hematuria Hematologic/Lymphatic: No Easy Bleeding, No Easy Bruising All Other Systems: Reviewed and Negative Medications & Allergies Home Medications: Home Medication List Allopurinol 100 mg [Zyloprim 100 mg] 100 mg PO DAILY 09/24/17 [History Confirmed 03/31/22] Bimatoprost [Lumigan] 1 drops OP HS 09/24/17 [History Confirmed 03/31/22] Brimonidine Tartrate/Timolol [Combigan 0.2%-0.5% Eye Drops] 1 drop OP BID 09/24/17 [History Confirmed 03/31/22] Hydralazine HCl 50 mg PO DAILY 09/24/17 [History Confirmed 03/31/22] Metoprolol Succinate [Toprol Xl] 150 mg PO DAILY 09/24/17 [History Confirmed 03/31/22] Potassium Chloride [Klor-Con 10] 10 meq PO DAILY 09/24/17 [History Confirmed 03/31/22] Dorzolamide HCl/Pf [Dorzolamide 2% Eye Drop] 1 drop OP DAILY 10/16/19 [History Confirmed 03/31/22] Doxazosin Mesylate 2 mg [Cardura 2 mg] 2 mg PO HS 10/16/19 [History Confirmed 03/31/22] Apixaban [Eliquis] 5 mg PO BID #0 03/09/21 [Rx Confirmed 03/31/22] Magnesium Oxide [Magnesium] 400 mg PO DAILY 07/26/21 [History Confirmed 03/31/22] cloNIDine [Catapres-Tts 1] 0.1 mg TD WEEKLY 07/26/21 [History Confirmed 03/31/22 ] Losartan Potassium [Cozaar] 25 mg PO BID 03/31/22 [History Confirmed 03/31/22] Allergies/Adverse Reactions: Allergies Allergy/AdvReac Type Severity Reaction Status Date / Time No Known Drug Allergies Allergy Verified 01/16/24 17:36 - Past Medical History Past Medical History: Yes Neurological History: No Pertinent History ENT History: Glaucoma Cardiac History: Arrhythmia, High Cholesterol, Hypertension Respiratory History: No Pertinent History Endocrine Medical History: Other Musculoskelatal History: Arthritis GI Medical History: No Pertinent History History: Other Pyscho-Social History: Anxiety Reproductive Disorders: No Pertinent History Comment: Parathyroid nodules. 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 Situational anxiety - Past Surgical History Past Surgical History: Yes Neuro Surgical History: No Pertinent History Cardiac History: Cardiac Catheterization Respiratory Surgery: No Pertinent History GI Surgical History: No Pertinent History Genitourinary Surgical Hx: No Pertinent History Musculskeletal Surgical Hx: No Pertinent History Female Surgical History: Section Other Surgical History: 2 c-sections, parathyroid biopsy. Skin cancer removed from left arm Significant Family History: no pertinent family hx - Social History Smoking Status: Never smoker Exposure to second hand smoke: No Alcohol: None Drug Use: none - Social Determinants of Health Will the patient participate in the screening: Declined to provide - Physical Exam Vital Signs: Vital Signs - 24 hr Temp Pulse Resp BP Pulse Ox 01/16/24 19:23 97 01/16/24 17:35 98.6 F 99 H 18 181/86 97 GEN: Lying in bed in no acute distress NEURO: No focal deficits except moderately hard of hearing CV: Regular rate & rhythm, no murmurs, no edema PULM: Clear to auscultation bilaterally, no work of breathing, on room air ABD: Soft, non-distended, normoactive bowel sounds PSYCH: Alert, oriented x3 Results - Labs Lab/Micro Results: Lab Results-Last 24 Hours 01/16/24 Range/Units 19:37 ABO Group Pending Rh Factor Pending Antibody Screen Pending Crossmatch Pending WBC 8.8, hemoglobin 5.3, platelet 333 Sodium 139, potassium 4.6, chloride 102, CO2 26, BUN 18, creatinine 0.9, glucose 122, calcium 10.4, magnesium 1.7 Iron 27, TIBC 515, iron saturation 5%, ferritin 4.6 Folic acid 10.2, B12 349, albumin 3.9, remainder of LFTs are normal Assessment/Plan (1) Symptomatic anemia Current Visit: Yes Status: Acute Assessment & Plan: 83-year-old woman with a history of iron deficiency anemia, hypertension, and A- fib on Eliquis, here from outside clinic for symptomatic anemia. ## Symptomatic iron deficiency anemia patient had a EGD and colonoscopy 1 year ago, with no source found, and no overt GI bleeding. However, she has been off of her iron repletion for about 6 months, and has had recurrence of her anemia. Iron studies also show severe iron deficiency. Type and cross done in the ER, with 3 units ordered Repeat H&H in the morning after transfusion Patient would benefit from iron supplementation, but given her prior intolerance of oral iron, this will likely need to be done as iron infusions. Patient can follow-up with Dr. Bustillo to restart these infusions. She has an appointment scheduled for Sunday. Will stop Eliquis given for sedation with anemia. ## A-fib currently rate controlled. Patient has been on Eliquis, with a CHA2 DS2-VASc score of 4. However, she has had persistent anemia of unexplained source. Discontinue Eliquis Continue Toprol-XL 150 mg daily ## Hypertension blood pressure currently controlled. Continue clonidine 0.1 mg patch, Toprol-XL 150 mg, losartan 25 mg BID CODE STATUS: Full code Diet: Regular Prophylaxis: Holding Eliquis due to anemia Telemedicine Encounter - Telemedicine Encounter Telemedicine Encounter: The entirety of this encounter was performed via Telemedicine"
[2024-01-16 21:26] LABS: ABO TYPING O; Antibody Screen NEGATIVE (NEGATIVE); RH TYPING POSITIVE
[2024-01-16 21:27] LABS: CROSS MATCH (PRBC) COMPATIBLE (COMPATIBLE)
[2024-01-17] MEDS ORDERED: Sodium Chloride 0.9% 500 ML 500 ML IV ONE (01:14)
[2024-01-17] MEDS: Sodium Chloride 0.9% 500 ML 500 ML IV SCH (01:31)
[2024-01-17] MEDS ORDERED: Toprol Xl 50 MG PO ONE (06:14)
[2024-01-17] MEDS: Toprol Xl 100 MG PO SCH (06:16)
[2024-01-17 07:23] VITALS: RESP 18
[2024-01-17] MEDS ORDERED: MEDICATION INTERVENTION MC SCH (07:30)
[2024-01-17] MEDS: ZYLOPRIM 100 MG PO SCH (09:43)
[2024-01-17] MEDS: Lasix 20 MG/2 ML IV SCH (09:43)
[2024-01-17] MEDS: MAG-OX 400 PO SCH (09:43)
[2024-01-17] MEDS: Toprol Xl 50 MG PO SCH (09:44)
[2024-01-17] MEDS ORDERED: NON-FORMULARY ITEM (Brimonidine Tartrate/Timolol [Combigan 0.2%-0.5% Eye Drops] 5 ML Drops OP SCH (10:00)
[2024-01-17 10:29] LABS: Hemoglobin 7.7 g/dL (12.0-16.0); Mean Cell Volume 71.4 fL (78-100); Mean Corpuscular Hemoglobin 19.6 pg (26-32); Mean Corpuscular Hgb Concent. 27.5 g/dL (32-36); Mean Platelet Volume 8.4 fL (7.5-11.0); Platelet Count 285 x10^3/uL (150-450); Red Blood Count 3.92 x10^6/uL (4.1-5.4); Red Cell Distribution Width 21.8 % (11.5-14.0); White Blood Count 8.3 x10^3/uL (4.0-10.5)
[2024-01-17 10:49] LABS: ANION GAP 11.2 MEQ/L (5-15); Calcium 10.3 mg/dL (8.4-10.2); Creatinine 1 0.85 mg/dL (0.52-1.04); EST GLOMERULAR FILTRATION RATE 68.4 ML/MIN; Potassium 4.6 mmol/L (3.5-5.1)
[2024-01-17 11:20] LABS: Slide Review YES
[2024-01-17 11:24] VITALS: BP 184/79; PULSE 87; TEMP 97.9; O2SAT 98
--- NOTE | 2024-01-17 14:38 | PCM.DS ---
Discharge Summary Date of Admission: 01/16/24 21:30 Date of Discharge: 01/17/2024 Admitting Physician: HARSHA DEL TORO MD Primary Care Provider: THOMAS FROST DO Allergies Allergies No Known Drug Allergies Allergy (Verified 01/16/24 17:36) Hospital Summary - Hospital Course Hospital Course: Admission Information: 83-year-old woman with a history of A-fib on Eliquis, iron-deficiency anemia, and hypertension, who presents from outside clinic with symptomatic anemia. Patient was found to have iron-deficiency anemia about 1 year ago. At that time, she underwent EGD and colonoscopy that showed no source of bleeding. At that point, she was placed on iron oral repletion, but she did not tolerate it due to constipation. She was changed to iron infusions, with improvement in her levels. This is all been supervised by her loan specialist, Dr. Bustillo. However, she has not seen him in 6 months, but anticipation of a new visit next week, had labs drawn including CBC and anemia labs. All of those labs, she had a hemoglobin of 5.3, and was told to come to the hospital. After arriving in thorough questioning by her daughter, patient admitted that she has been having some worsening dyspnea and weakness, particularly when trying to get out of the shower. She denies any history of hematochezia, melena, or hematemesis. Hospital Course: Patient received 3 units of blood and at the time of discharge her Hg was 9.0. Her dyspnea had improved and she was feeling better. She already has an appointment with her loan specialist Dr. Bustillo next week, who manages her anemia. She was instructed to keep that appointment. She was discharged home in a stable condition. - Vitals & Intake/Output Vital Signs: Vital Signs Temperature 97.9 F 01/17/24 11:23 Pulse Rate 87 01/17/24 11:23 Respiratory Rate 18 01/17/24 11:23 Blood Pressure 184/79 01/17/24 11:23 O2 Sat by Pulse Oximetry 98 01/17/24 11:23 Intake & Output: Intake & Output 01/15/24 01/16/24 01/17/24 01/18/24 11:59 11:59 11:59 11:59 Intake Total 520 450 Balance 520 450 Weight 112.3 kg - Lab Result Diagrams: 01/17/24 15:34 01/17/24 10:25 Lab Results-Last 24 Hrs: Lab Results-Last 24 Hours 01/16/24 01/16/24 01/16/24 Range/Units 19:37 19:37 19:37 WBC (4.0-10.5) x10^3/uL RBC (4.1-5.4) x10^6/uL Hgb (12.0-16.0) g/dL Hct (35-47) % MCV (78-100) fL MCH (26-32) pg MCHC (32-36) g/dL RDW (11.5-14.0) % Plt Count (150-450) x10^3/uL MPV (7.5-11.0) fL Sodium (135-145) mmol/L Potassium (3.5-5.1) mmol/L Chloride (98-107) mmol/L Carbon Dioxide (22-30) mmol/L Anion Gap (5-15) MEQ/L BUN (7-17) mg/dL Creatinine (0.52-1.04) mg/dL Estimated GFR ML/MIN Glucose (74-106) mg/dL Calcium (8.4-10.2) mg/dL Slides for Path Review ABO Group O Rh Factor POSITIVE Antibody Screen NEGATIVE (NEGATIVE) Crossmatch COMPATIBLE COMPATIBLE COMPATIBLE (COMPATIBLE) 01/16/24 01/17/24 01/17/24 Range/Units 19:37 10:25 10:25 WBC 8.3 (4.0-10.5) x10^3/uL RBC 3.92 L (4.1-5.4) x10^6/uL Hgb 7.7 L D (12.0-16.0) g/dL Hct 28.0 L (35-47) % MCV 71.4 L (78-100) fL MCH 19.6 L (26-32) pg MCHC 27.5 L (32-36) g/dL RDW 21.8 H (11.5-14.0) % Plt Count 285 (150-450) x10^3/uL MPV 8.4 (7.5-11.0) fL Sodium 138 (135-145) mmol/L Potassium 4.6 (3.5-5.1) mmol/L Chloride 102 (98-107) mmol/L Carbon Dioxide 30 (22-30) mmol/L Anion Gap 11.2 (5-15) MEQ/L BUN 16 (7-17) mg/dL Creatinine 0.85 (0.52-1.04) mg/dL Estimated GFR 68.4 ML/MIN Glucose 114 H (74-106) mg/dL Calcium 10.3 H (8.4-10.2) mg/dL Slides for Path Review YES ABO Group Rh Factor Antibody Screen (NEGATIVE) Crossmatch COMPATIBLE (COMPATIBLE) Discharge Exam General Appearance: no apparent distress, alert Neurologic Exam: alert, oriented x 3, cooperative, normal mood/affect, nml cerebellar function, sensation nml, No motor deficits Eye Exam: PERRL, EOMI, eyes nml inspection Ears, Nose, Throat Exam: normal ENT inspection, pharynx normal, moist mucous membranes Neck Exam: normal inspection, non-tender, supple, full range of motion Respiratory Exam: normal breath sounds, lungs clear, No respiratory distress Cardiovascular Exam: regular rate/rhythm, normal heart sounds Gastrointestinal/Abdomen Exam: soft, No tenderness, No mass Pelvic Exam: deferred Rectal Exam: deferred Extremity Exam: normal inspection, normal range of motion Skin Exam: normal color, warm, dry Telemedicine Encounter - Telemedicine Encounter Telemedicine Encounter: The entirety of this encounter was performed via Telemedicine" - Discharge Discharge Date: 01/17/24 Disposition: Home, Self-Care Condition: Stable Prescriptions: Continue Brimonidine Tartrate/Timolol [Combigan 0.2%-0.5% Eye Drops] 1 drop OP BID Metoprolol Succinate [Toprol Xl] 50 mg PO BID Allopurinol 100 mg [Zyloprim 100 mg] 100 mg PO DAILY Bimatoprost [Lumigan] 1 drops OP HS Apixaban [Eliquis] 5 mg PO BID #0 Magnesium Oxide [Magnesium] 400 mg PO DAILY cloNIDine [Catapres-Tts 1] 0.1 mg TD WEEKLY Furosemide 40 mg [Lasix 40 MG] 40 mg PO DAILY PRN PRN PRN Reason: EDEMA Instructions: Anemia caused by low iron Follow up with: RAPHAEL ROBERTS BLOWER ROOM ATTENDANT [[employer] PROFESSION STAFF] - 01/24/24 2:00 pm Forms: Discharge Instructions
[2024-01-17 15:38] LABS: Hematocrit 31.5 % (35-47)
[2024-01-17] MEDS ORDERED: LUMIGAN 0.01% 2.5 ML OP SCH (22:00)
== END 2024-01-17 16:10 | disposition home or self-care (01) ==
LOC: ED 17:17 → MED SURG 21:30
PROVIDERS: ADMIT Internal Medicine; ATTEND Internal Medicine
DX: D64.9 Anemia, unspecified (principal); I48.91 Unspecified atrial fibrillation; I10 Essential (primary) hypertension; E78.5 Hyperlipidemia, unspecified; Z79.899 Other long term (current) drug therapy; Z79.01 Long term (current) use of anticoagulants; Z20.828 Contact with and (suspected) exposure to other viral communicable diseases
CPT/HCPCS: 36000; 36415; 36430; 80048; 85014; 85018; 85027; 86850; 86900; 86901; 86922; 99283; 99291; G0378; P9016; Q3014; J1940; A9270-GY

== ENCOUNTER 2025-02-15 12:53 | Emergency (ER) | payer MEDICARE ==
[2025-02-15 13:19] VITALS: O2SAT 96
--- NOTE | 2025-02-15 14:55 | XRAY ---
CLINICAL HISTORY: Fall, pain, swelling COMPARISON: None. TECHNIQUE: Thin axial CT of the cervical spine was performed with sagittal and coronal reconstructions without contrast. One of the following dose reduction techniques were utilized for this exam: Automated exposure control, adjustment of the mA and/or kV according to patient size, and use of iterative reconstruction FINDINGS: Vertebrae: Straightening of cervical curvature suggests muscle spasm. First-degree degenerative spondylolithesis of C7. Small lucent areas at C2 and C4, likely a degenerative cyst. No fractures, suspicious lytic or sclerotic lesions. Reduced bone density. Intervertebral Discs: Advanced cervical spondylosis with anterior and posterior osteophytosis and narrowed intervertebral discs. Spinal Canal and Neural Foramina: C3/4 down to C7/T1 posterior disc bulges with bony hypertrophy indenting the cord with mild to moderate encroachment upon both exit foramina. Facet Joints: Multilevel facet and uncovertebral joints arthropathy. Soft Tissues: Enlarged heterogeneous thyroid gland with nodules. Atheromatous calcifications of the ICAs with medial looposing (retropharyngeal course) of the right ICA. Degenerative changes at the atlantoaxial articulation with surrounding soft tissue thickening and calcifications. IMPRESSION: 1. No acute fracture or dislocation. 2. Straightening of cervical curvature suggests muscle spasm. 3. First-degree degenerative spondylolithesis of C7. 4. Advanced cervical spondylosis with multilevel disc/osteophyte complexes. 5. Multilevel facet and uncovertebral joints arthropathy. 6. Degenerative changes at the atlantoaxial articulation with surrounding soft tissue thickening and calcifications. 7. Enlarged heterogeneous thyroid gland with nodules. Advise U/S assessment. 8. Atheromatous calcifications of the ICAs with medial looposing (retropharyngeal course) of the right ICA. Electronically Signed by: Brandi Chappell MD. (02/15/2025 14:42:36 EDT)
--- NOTE | 2025-02-15 14:56 | XRAY ---
CLINICAL HISTORY: Fall, pain, swelling COMPARISON: 06/07/2020. TECHNIQUE: Axial non-contrast CT scan of the brain was performed from the skull base to the high parietal region. One of the following dose reduction techniques were utilized for this exam: Automated exposure control, adjustment of the mA and/or kV according to patient size, use of iterative reconstruction. FINDINGS: Brain Parenchyma: No evidence of acute infarct, hemorrhage, or mass effect. Exaggerated bilateral deep periventricular white matter hypoattenuation. Bilateral tiny hyoidense foci at basal ganglia and may radiata. Small anterior falx lipomas. Ventricular System: Ventricles are mildly dilated Subarachnoid Spaces: widened sulci and cisterns. No evidence of subarachnoid hemorrhage or extra-axial fluid collections. Cerebellum and Brainstem: Normal size and signal. No masses, lesions, or areas of abnormal signal. Orbits: Normal appearance of the globes, optic nerves, and extraocular muscles. No evidence of orbital masses or abnormal signal. Sinuses: Left maxillary mucosal thickening. Mastoid Air Cells: Clear mastoid air cells. No evidence of mastoiditis. Skull: Normal skull morphology. New small posterior parietal sugaleal hematoma. Resolved previously seen left frontal subgaleal hematoma. IMPRESSION: 1. No intracranial hematomas or skull fractures. 2. New small posterior parietal sugaleal hematoma. 3. Brain involutional changes- Stable. 4. Small vessel disease- Stable. 5. Small anterior falx lipomas- Stable. 6. Mild left maxillary sinusitis/retention cyst- New. Electronically Signed by: Brandi Chappell MD. (02/15/2025 14:29:29 EDT)
[2025-02-15] MEDS: CLONIDINE 0.1 MG TABLET PO ONE (15:04)
--- NOTE | 2025-02-15 15:25 | ERPHSYRPT ---
- History of Present Illness Time Seen by Provider: 02/15/25 13:32 Source: patient, family Exam Limitations: no limitations Patient Subjective Stated Complaint: C/O Head injury after a fall today. Patient fell backwards and hit her head on the concrete after sabianist service this am. Denies being dizzy or light headed; states lost her balance while digging through her purse. Triage Nursing Assessment: Patient brought back to ER in a W/C. Assisted from chair to bed with assist of one staff. Patient has a hematoma to the back of her head. KANU RODRIGUEZ. Physician History: 84 years old female with history of atrial fibrillation on Eliquis was trying to get her keys from the purse, lost her balance and fell on her buttocks and then hit her head backward against the concrete without any loss of consciousness. This happened almost 2 hours ago. Patient reports swelling of the back of her head with minimal headache. Denies feeling dizzy lightheaded, neck pain, numbness tingling focal weakness before or after the fall. No chest pain palpitations or shortness of breath reported. Patient is ambulatory as usual. Reports minimal discomfort in the hips but no significant pain limiting her mobility. Patient is on Eliquis and wants to make sure she does not have an intracranial bleed. Allergies/Adverse Reactions: No Known Drug Allergies Allergy (Verified 02/15/25 13:07) Home Medications: Allopurinol 100 mg [Zyloprim 100 mg] 100 mg PO DAILY 09/24/17 [History] Bimatoprost [Lumigan] 1 drops OP HS 09/24/17 [History] Brimonidine Tartrate/Timolol [Combigan 0.2%-0.5% Eye Drops] 1 drop OP BID 09/24/17 [History] Metoprolol Succinate [Toprol Xl] 50 mg PO BID 09/24/17 [History] Magnesium Oxide [Magnesium] 400 mg PO DAILY 07/26/21 [History] cloNIDine [Catapres-Tts 1] 0.1 mg TD WEEKLY 07/26/21 [History] Furosemide 40 mg [Lasix 40 MG] 40 mg PO DAILY PRN PRN 01/16/24 [History] Hx Tetanus, Diphtheria Vaccination/Date Given: (Unsure about tetanus) Hx Influenza Vaccination/Date Given: Yes Hx Pneumococcal Vaccination/Date Given: Yes Immunizations Up to Date: Yes Travel Risk - International Travel Have you traveled outside of the country in past 3 weeks: No - Emerging Infectious Disease Are you exhibiting symptoms associated with any current EIDs: No - Review of Systems Constitutional: No Symptoms Eyes: No Symptoms Ears, Nose, & Throat: No Symptoms Respiratory: No Symptoms Cardiac: No Symptoms Abdominal/Gastrointestinal: No Symptoms Genitourinary Symptoms: No Symptoms Musculoskeletal: Fall, Injury Skin: No Symptoms Neurological: Headache Endocrine: No Symptoms Immunological/Allergic: No Symptoms - Past Medical History Pertinent Past Medical History: Yes Neurological History: No Pertinent History ENT History: Glaucoma Cardiac History: Arrhythmia, High Cholesterol, Hypertension Respiratory History: No Pertinent History Endocrine Medical History: Other Musculoskeletal History: Arthritis GI Medical History: No Pertinent History History: Other Psycho-Social History: Anxiety Female Reproductive Disorders: No Pertinent History Other Medical History: Parathyroid nodules. 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 Situational anxiety - Past Surgical History Past Surgical History: Yes Neuro Surgical History: No Pertinent History Cardiac: Cardiac Catheterization Respiratory: No Pertinent History Gastrointestinal: No Pertinent History Genitourinary: No Pertinent History Musculoskeletal: No Pertinent History Female Surgical History: Section Other Surgical History: 2 c-sections, parathyroid biopsy. Skin cancer removed from left arm Significant Family History: no pertinent family hx - Social History Smoking Status: Never smoker Exposure to second hand smoke: No Drug Use: none - Social Determinants of Health Will the patient participate in the screening: Yes Do you worry about a steady place to live?: No Do you have any problems with any of the following?: No known problems In the past 12 months,have you had to go without utilities?: No Transportation Issues: No Has anyone in your support network made you feel unsafe?: No Have you or anyone in your house had to go w/o enough food: No - Nursing Vital Signs Nursing Vital Signs: Initial Vital Signs Pulse Rate 78 02/15/25 13:08 Respiratory Rate 17 02/15/25 13:08 Blood Pressure 217/115 02/15/25 13:08 O2 Sat by Pulse Oximetry 96 02/15/25 13:08 Pain Scale Pain Intensity 0 - Mariella Coma Score Best Eye Response ([place]): (4) open spontaneously Best Verbal Response ([place]): (5) oriented Best Motor Response ([place]): (6) obeys commands [place] Total: 15 - Physical Exam General Appearance: no apparent distress, alert Head Injury: swelling, tenderness (Posterior parietal/occipital area almost 2 cm swelling with no step in deformity.) Eye Exam: bilateral eye: normal inspection, PERRL, EOMI ENT Exam: airway nml, No evidence of ENT injury, No dental injury Neck Exam: supple, trachea midline, full range of motion, normal alignment, normal inspection Cardiovascular/Respiratory Exam: normal breath sounds, regular rate/rhythm Gastrointestinal/Abdominal Exam: soft, non tender, no distention, no mass Back Exam: normal inspection Extremity Exam: non-tender, normal range of motion Mental Status Exam: alert, oriented x 3, cooperative vertical punch operator Exam: normal hearing, normal speech, PERRL Coordination/Gait Exam: normal finger to nose, normal gait, normal cerebellar function Motor/Sensory Exam: no motor deficit, no sensory deficit, no pronator drift DTR Exam: bicep (R): 2+, bicep (L): 2+, knee (R): 2+, knee (L): 2+ Skin Exam: normal color, warm SpO2 Interpretation: normal SpO2: 96 O2 Delivery: Room Air Ordered Tests: Active Orders 24 hr Category Date Time Status CERVICAL SPINE WO CONTRAST [CT] Stat Exams 02/15/25 13:20 Completed HEAD WITHOUT CONTRAST [CT] Stat Exams 02/15/25 13:20 Completed Medication Summary Discontinued Medications Generic Name Dose Route Start Last Admin Trade Name Mattie PRN Reason Stop Dose Admin Clonidine 0.2 mg 02/15/25 13:47 02/15/25 15:04 Clonidine Hcl 0.1 Mg Tablet PO 02/15/25 13:48 Not Given STAT ONE - Progress Progress: improved Progress Note: 02/15/25 15:24 84-year-old on Eliquis is evaluated in the ER for ground-level fall with injury to the back of her head without LOC. Nonfocal neuroexam throughout her stay in the ER. Patient is ambulatory without any assistance. Obtained CT head and cervical spine which are negative for any acute intracranial finding, skull fracture, does have a small hematoma in the posterior parietal area. Recommended intermittent ice application, Tylenol and outpatient follow-up. Do not think patient needs any other workup as it was a clear mechanical fall. Discussed signs symptoms of worsening needing return to ER which she seems understanding. Stable for discharge. Complexity of problems addressed: Moderate acute Complexity of data reviewed/analyzed: Moderate Risk of complication: Low risk Counseled pt/family regarding: diagnosis, need for follow-up, rad results Medical Desision Making - Independent Historian Additional History obtained from: Child - Diagnostic Testing Diagnostic test were ordered, analyzed, and reviewed by me: Yes Radiological Interpretation: Teleradiologist Report - Departure Departure Disposition: Home Clinical Impression: Scalp contusion, Ground-level fall Condition: Stable Critical Care Time: No Referrals: THOMAS FROST DO [Primary Care Provider, [facility]] - Follow up with PCP 1 day Instructions: Concussion, Adult (DC), Head Injury in Adults (DC) Additional Instructions: Intermittent ice application. Tylenol as needed. Stay with responsible person for next 24 to 48 hours with frequent neurochecks, return to ER if not acting self, intractable nausea vomiting, confusion, numbness tingling focal weakness etc.
[2025-02-15 15:26] VITALS: BP 109/60; PULSE 74; RESP 20
== END 2025-02-15 15:30 | disposition home or self-care (01) ==
LOC: ED 12:53
DX: S00.03XA Contusion of scalp, initial encounter (principal); W18.39XA Other fall on same level, initial encounter; E78.5 Hyperlipidemia, unspecified; I10 Essential (primary) hypertension; Z79.01 Long term (current) use of anticoagulants; Z79.899 Other long term (current) drug therapy
CPT/HCPCS: 70450; 72125; 99283; 99284

== ENCOUNTER 2025-08-06 10:56 | Day surgery (SDC) | payer MEDICARE ==
[2025-08-06 10:26] VITALS: RESP 18
[~2025-08-06 10:56] MED LIST changes: -DIPRIVAN 200 MG/20 ML IV ONE; -Ketamine HCl 50 MG/ML ONE; -Lactated Ringers 1,000 ML IV SCH; -Sensorcaine 0.25% 10 ML ONE
[2025-08-06 11:06] LABS: Calcium 10.1 mg/dL (8.4-10.2); Carbon Dioxide 29.0 mmol/L (22-30); Creatinine 1 0.8 mg/dL (0.52-1.04); EST GLOMERULAR FILTRATION RATE 72.6 ML/MIN; Glucose 118.0 mg/dL (74-106); Potassium 3.6 mmol/L (3.5-5.1)
[2025-08-06] MEDS: Lactated Ringers 1,000 ML IV SCH (11:22)
[2025-08-06] MEDS ORDERED: Amidate 20 MG/10 ML IV ONE (11:41)
[2025-08-06] MEDS ORDERED: propofoL IV ONE (11:41)
[2025-08-06] MEDS ORDERED: Xylocaine-Mpf 2% 5 Ml Vial ONE (11:42)
[2025-08-06 12:24] VITALS: O2SAT 96
[2025-08-06 12:34] VITALS: BP 137/79; PULSE 78; TEMP 97
--- NOTE | 2025-08-07 09:04 | OP ---
SURGERY DATE/TIME: 08/06/2025 [id number] PREOPERATIVE DIAGNOSIS: Iron deficiency anemia, abnormal CT scan. POSTOPERATIVE DIAGNOSIS: Small hiatal hernia, minimal gastritis. PROCEDURE: Esophagogastroduodenoscopy. SURGEON: Akhil Hoang MD ANESTHESIA: IV. CONDITION: Stable. COMPLICATIONS: None. SPECIMEN: None. INDICATIONS: An 85-year-old female with iron deficiency anemia, is up to date on her colonoscopy fairly recently. She does not want to have a colonoscopy done, which is understandable. It is probably low yield with that. She is having some darkish stools but, then, she is on iron. She does not really notice any tha blood otherwise, but she did have a CT scan with some thickening where she does want to proceed with EGD to rule out ulcer, upper source for anemia. FINDINGS: Just minimal erythema of the stomach and a small hiatal hernia. No source for anemia identified. DESCRIPTION OF PROCEDURE AND FINDINGS: Patient was brought to the endoscopy suite, routinely positioned and prepared. IV anesthesia induced by Anesthesia. The gastroscope was inserted through the mouth, advanced to the third portion of duodenum. Duodenum was normal in appearance. Stomach with just minimal erythema. Certainly, no source for anemia. There was a small hiatal hernia. GE junction normal, otherwise. Stomach was suctioned out. Scope was withdrawn. The esophagus was normal in appearance. The patient tolerated the procedure well, taken to Recovery in stable condition. RECOMMENDATIONS: Continue on current medications. Follow up as needed with me.
== END 2025-08-06 12:42 | disposition home or self-care (01) ==
LOC: SDC 10:56
PROVIDERS: ATTEND Surgery
DX: K29.70 Gastritis, unspecified, without bleeding (principal); D64.9 Anemia, unspecified; R93.89 Abnormal findings on diagnostic imaging of other specified body structures; K44.9 Diaphragmatic hernia without obstruction or gangrene; I10 Essential (primary) hypertension